=== PATIENT | female | born 1935 | race Caucasian/White ===

== ENCOUNTER 2017-09-19 17:29 | Emergency (ER) | payer MEDICARE ==
[~2017-09-19] VITALS: Ht 154.9 cm; Wt 115.5 kg
[2017-09-19 17:33] VITALS: TEMP 98.3
[2017-09-19] MEDS ORDERED: CELEBREX 200MG200 MG PO (17:41)
[2017-09-19] MEDS ORDERED: HYZAAR 12.5 MG-1 TAB PO (17:41)
[2017-09-19] MEDS ORDERED: ASPIRIN 81M81 MG/TA2 PO (17:41)
[2017-09-19] MEDS ORDERED: SYNTHROID0.075 MG/T PO (17:42)
[2017-09-19] MEDS ORDERED: CRESTOR 10MG10 MG PO (17:58)
[2017-09-19] MEDS ORDERED: SINGULAIR 110 MG/TAB PO (17:59)
[2017-09-19] MEDS ORDERED: AMITRIPTYLINE H10 M1 PO (17:59)
[2017-09-19] MEDS ORDERED: NEURONTIN300 MG/CAP PO (17:59)
[2017-09-19 18:44] VITALS: BP 166/95; PULSE 77
== END 2017-09-19 18:44 | disposition home or self-care (01) ==
LOC: COL.ER 17:29
DX: S09.90XA Unspecified injury of head, initial encounter (principal); S01.81XA Laceration without foreign body of other part of head, initial encounter; S60.221A Contusion of right hand, initial encounter; I10 Essential (primary) hypertension; Z79.82 Long term (current) use of aspirin; Z86.73 Personal history of transient ischemic attack (TIA), and cerebral infarction without residual deficits; W18.39XA Other fall on same level, initial encounter; W22.8XXA Striking against or struck by other objects, initial encounter; Y92.009 Unspecified place in unspecified non-institutional (private) residence as the place of occurrence of the external cause

== ENCOUNTER 2017-09-26 09:17 | Emergency (ER) | payer MEDICARE ==
[~2017-09-26 09:17] MED LIST: AMITRIPTYLINE H10 M1 PO; ASPIRIN 81M81 MG/TA2 PO; CELEBREX 200MG200 MG PO; CRESTOR 10MG10 MG PO; HYZAAR 12.5 MG-1 TAB PO; NEURONTIN300 MG/CAP PO; SINGULAIR 110 MG/TAB PO; SYNTHROID0.075 MG/T PO
[2017-09-26 09:34] VITALS: BP 184/86; PULSE 79; TEMP 97.6
== END 2017-09-26 09:39 | disposition home or self-care (01) ==
LOC: COL.ER 09:17
DX: S01.111D Laceration without foreign body of right eyelid and periocular area, subsequent encounter (principal); Z79.82 Long term (current) use of aspirin; X58.XXXD Exposure to other specified factors, subsequent encounter

== ENCOUNTER 2017-10-22 09:45 | Outpatient (RCR) | payer MEDICARE | END 2017-12-06 | disposition home or self-care (01) | LOC: MKS.ESL.PT | DX: M54.42 Lumbago with sciatica, left side (principal); Z91.81 History of falling | CPT/HCPCS: G8978-GP; G8979-GP ==

== ENCOUNTER → 2018-02-11 | Outpatient (CLI) | payer MEDICARE | LOC: COL.RAD 08:37 | DX: M99.73 Connective tissue and disc stenosis of intervertebral foramina of lumbar region (principal); M46.96 Unspecified inflammatory spondylopathy, lumbar region; M51.15 Intervertebral disc disorders with radiculopathy, thoracolumbar region; M51.17 Intervertebral disc disorders with radiculopathy, lumbosacral region; M48.061 Spinal stenosis, lumbar region without neurogenic claudication ==

== ENCOUNTER → 2018-03-31 | Outpatient (CLI) | payer MEDICARE | LOC: COL.RAD 08:31 | DX: M51.16 Intervertebral disc disorders with radiculopathy, lumbar region (principal); M41.86 Other forms of scoliosis, lumbar region; M47.26 Other spondylosis with radiculopathy, lumbar region; M43.16 Spondylolisthesis, lumbar region ==

== ENCOUNTER 2018-08-02 08:30 | Outpatient (RCR) | payer MEDICARE | END 2018-08-03 | disposition home or self-care (01) | LOC: WSC | DX: M51.36 Other intervertebral disc degeneration, lumbar region (principal); M43.16 Spondylolisthesis, lumbar region; M47.819 Spondylosis without myelopathy or radiculopathy, site unspecified; M48.061 Spinal stenosis, lumbar region without neurogenic claudication | CPT/HCPCS: G8978-GP; G8979-GP ==

== ENCOUNTER → 2021-02-28 | Outpatient (CLI) | payer MEDICARE | LOC: MC.RAD 13:06 | DX: Z12.31 Encounter for screening mammogram for malignant neoplasm of breast (principal); N63.20 Unspecified lump in the left breast, unspecified quadrant ==

== ENCOUNTER → 2021-03-06 | Outpatient (CLI) | payer MEDICARE | LOC: MC.RAD 07:45 | DX: R92.8 Other abnormal and inconclusive findings on diagnostic imaging of breast (principal) ==

== ENCOUNTER → 2021-09-12 | Outpatient (CLI) | payer MEDICARE | LOC: MC.RAD 09-08 09:00 | DX: N63.20 Unspecified lump in the left breast, unspecified quadrant (principal) ==

== ENCOUNTER → 2023-06-24 | Outpatient (REF) | payer MEDICARE ==
[~2023-06-24] MED LIST changes: +CEPHALEXIN500 M1 PO
== END ==
LOC: ZCOL.LAB 12:33
DX: R07.9 Chest pain, unspecified (principal)

== ENCOUNTER 2023-06-29 14:42 | Emergency (ER) | payer MEDICARE ==
[~2023-06-29] VITALS: Ht 154.9 cm; Wt 55.9 kg
[~2023-06-29 14:42] MED LIST changes: -CEPHALEXIN500 M1 PO
[2023-06-29 14:46] VITALS: TEMP 97.8
[2023-06-29] MEDS ORDERED: CEPHALEXIN500 M1 PO (16:27)
[2023-06-29] MEDS ORDERED: Cephalexin 500 MG CAP PO ONE (16:30)
[2023-06-29 16:32] VITALS: BP 177/88; PULSE 80
== END 2023-06-29 16:33 | disposition home or self-care (01) ==
LOC: COL.ER 14:42
DX: S81.812A Laceration without foreign body, left lower leg, initial encounter (principal); W26.8XXA Contact with other sharp object(s), not elsewhere classified, initial encounter; W14.XXXA Fall from tree, initial encounter